=== PATIENT | female | born 1985 | race Caucasian/White ===

== ENCOUNTER 2016-07-30 23:43 | Emergency (ER) | payer BC ==
--- NOTE | 2016-07-31 01:54 | ER Document Report ---
HPI - HPI Patient complains to provider of: skin rash Pain Level: Denies Context: Patient is a 31-year-old female that comes emergency department for chief complaint of a rash, rest started a couple of days ago, patient was evaluated by primary care today and placed on Benadryl, patient states she had a mud run several days ago and rash appeared afterwards. She states she thinks she had a fever, she states she had a headache but this resolved, denies neck stiffness, denies shortness of breath or cough, denies nausea or vomiting. She states the rash is itchy, she denies that the rash is painful. She states she cannot stop scratching. She reports she is up-to-date on her tetanus. Patient states her family members do not have this. She states her friend has this and her friend also went on the mud run. - CARDIOVASCULAR Cardiovascular: DENIES: Chest pain - REPRODUCTIVE Reproductive: DENIES: : - DERM Skin Color: Normal Past Medical History - General Information source: Patient - Social History Smoking Status: Unknown if Ever Smoked Frequency of alcohol use: None Family History: Reviewed & Not Pertinent Patient has suicidal ideation: No Patient has homicidal ideation: No - Past Medical History Cardiac Medical History: Denies: Hx Coronary Artery Disease, Hx Heart Attack, Hx Hypertension Pulmonary Medical History: Denies: Hx Asthma, Hx Bronchitis, Hx COPD, Hx Pneumonia Neurological Medical History: Denies: Hx Cerebrovascular Accident, Hx Seizures Renal/ Medical History: Denies: Hx Peritoneal Dialysis Musculoskeltal Medical History: Denies Hx Arthritis Psychiatric Medical History: Reports: Hx Anxiety, Hx Depression - and anxiety Past Surgical History: Reports: Hx Orthopedic Surgery - R elbow - Immunizations Hx Diphtheria, Pertussis, Tetanus Vaccination: Yes Vertical Provider Document - CONSTITUTIONAL General Appearance: WD/WN, No Apparent Distress - INFECTION CONTROL TRAVEL OUTSIDE OF THE [place] IN LAST 30 DAYS: No - HEENT HEENT: Atraumatic, Normal ENT Exam, Normocephalic - RESPIRATORY Respiratory: Breath Sounds Normal, No Respiratory Distress O2 Sat by Pulse Oximetry: 100 - CARDIOVASCULAR Cardiovascular: Regular Rate, Regular Rhythm - GI/ABDOMEN Gastrointestinal: Abdomen Soft, Abdomen Non-Tender - MUSCULOSKELETAL/EXTREMETIES Musculoskeletal/Extremeties: MAEW, FROM, Non-Tender - DERM Integumentary: Rash - scattered papular rash, some of them are raised and possibly umbilicated, no induration or fluctuance, no significant erythema, no other abnormalities noted Course - Vital Signs Vital signs: Temp Pulse Resp BP Pulse Ox 97.9 F 76 18 118/68 100 07/30/16 23:48 07/30/16 23:48 07/30/16 23:48 07/30/16 23:48 07/30/16 23:48 Discharge - Discharge Clinical Impression: Skin rash Condition: Stable Disposition: HOME, SELF-CARE Additional Instructions: The itchy rash is suspicious of molluscum contagiosum. Over the itchy sites apply the prescribed cream, take zyrtec during the day, take the benadryl at night. Clean areas scratched open with soap and water, apply topical antibiotic , try not to scratch skin open to avoid secondary bacterial infection. Follow up with Primary Care. Return to the ED for any concerning symptoms - redness and spreading redness, hardening or swelling of the skin, or any other concerning symptoms. Prescriptions: Betamethasone Dipropionate 1 applic TP DAILY #1 tube Cetirizine HCl [Zyrtec 10 mg Tablet] 1 tab PO DAILY #30 tablet Forms: Return to School Referrals: ERIC RODRIGUEZ MD [Primary Care Provider] - Follow up as needed
[2016-07-31 02:14] VITALS: BP 124/55
== END 2016-07-31 02:19 | disposition home or self-care (01) ==
LOC: ER 23:43
DX: R21 Rash and other nonspecific skin eruption (principal); L29.9 Pruritus, unspecified
CPT/HCPCS: 99282

== ENCOUNTER 2017-06-26 21:46 | Emergency (ER) | payer BC ==
--- NOTE | 2017-06-26 23:15 | ER Document Report ---
HPI - HPI Pain Level: 4 Notes: Patient is a 32-year-old female with no significant past medical history who presents to the ED complaining of left knee pain status post injury 4 days ago. Patient was evaluated by her primary care provider the next day and was told that it may be an ACL issue and they were going to order an MRI for her. Patient states that she has continued pain and intermittent swelling so she presented to the emergency department. Patient has been using a knee sleeve that they provided to her that does not seem to help her at all. The pain does not radiate. Patient states that she has difficulty weightbearing and ambulating because of the pain. She has not had any other recent illness. Denies any drug allergies. Denies any IV drug use. Denies any headache, fever , neck pain, URI, sore throat, chest pain, palpitations, syncope, cough, shortness of breath, wheeze, dyspnea, abdominal pain, nausea/vomiting/diarrhea, urinary retention, dysuria, hematuria, loss of control of bowel or bladder, numbness/tingling, saddle anesthesia, muscle paralysis/weakness, or rash. XR unremarkable per patient from her [facility]. - ROS Systems Reviewed and Negative: Yes All other systems reviewed and negative - REPRODUCTIVE LMP: 3-17-18 Reproductive: DENIES: : Past Medical History - Social History Smoking Status: Never Smoker Family History: Reviewed & Not Pertinent - Past Medical History Cardiac Medical History: Denies: Hx Coronary Artery Disease, Hx Heart Attack, Hx Hypertension Pulmonary Medical History: Denies: Hx Asthma, Hx Bronchitis, Hx COPD, Hx Pneumonia Neurological Medical History: Denies: Hx Cerebrovascular Accident, Hx Seizures Renal/ Medical History: Denies: Hx Peritoneal Dialysis Musculoskeltal Medical History: Denies Hx Arthritis Psychiatric Medical History: Reports: Hx Anxiety, Hx Depression - and anxiety Past Surgical History: Reports: Hx Orthopedic Surgery - R elbow - Immunizations Hx Diphtheria, Pertussis, Tetanus Vaccination: Yes Vertical Provider Document - CONSTITUTIONAL Agree With Documented VS: Yes Notes: PHYSICAL EXAMINATION: GENERAL: Well-appearing, well-nourished and in no acute distress. LUNGS: Breath sounds clear to auscultation bilaterally and equal. No wheezes rales or rhonchi. HEART: Regular rate and rhythm without murmurs, rubs, gallops. Musculoskeletal: Left knee: No obvious ecchymosis, deformity, swelling, or warmth. Pt would not allow for adequate assessment of knee. LROM to passive/ active. Strength 5+/5. + tenderness to the joint line b/l. Could not adequately assess ligaments and cartilage otherwise. Extremities: No cyanosis, clubbing, or edema b/l. Peripheral pulses 2+. Capillary refill less than 3 seconds. NEUROLOGICAL: Normal speech, limping gait. Normal sensory, motor exams PSYCH: Normal mood, normal affect. SKIN: Warm, Dry, normal turgor, no rashes or lesions noted. - INFECTION CONTROL TRAVEL OUTSIDE OF THE [place] IN LAST 30 DAYS: No Course - Re-evaluation Re-evalutation: 06/26/17 23:14 Patient is an afebrile, well-hydrated, 32-year-old female who presents to the ED with left knee pain, suspect possible internal involvement. Vitals are acceptable. PE is otherwise unremarkable for any neurovascular compromise, obvious tendon/ligament rupture, obvious fracture/dislocation, septic joint. Patient artery had an x-ray which was unremarkable. Knee immobilizer was placed , crutches were declined as she has them at home. Recommend conservative measures for symptoms. Recheck with your PCM in 3-5 days. Schedule an appoint with orthopedics for further evaluation and management. Return to the ED with any worsening/concerning symptoms otherwise as reviewed discharge. Patient is in agreement. - Vital Signs Vital signs: Temp Pulse Resp BP Pulse Ox 98.3 F 99 18 126/62 H 97 06/26/17 22:03 06/26/17 22:03 06/26/17 22:03 06/26/17 22:03 06/26/17 22:03 Discharge - Discharge Clinical Impression: Left knee pain Qualifiers: Chronicity: acute Qualified Code(s): M25.562 - Pain in left knee Condition: Stable Disposition: HOME, SELF-CARE Instructions: Suspected Internal Knee Injury ([facility]), Knee Immobilizing Splint ( [facility]), Use of Crutches ([facility]) Additional Instructions: Rest, Ice, Compression, Elevation Use crutches/splint as directed Tylenol/ibuprofen as needed Light stretches daily Strength exercises as able Moist heat and massage may help F/u with your PCP in 3-5 days for a recheck Schedule an appointment with orthopedics for further evaluation and management Return to the ED with any worsening symptoms and/or development of fever, headache, chest pain, palpitations, syncope, shortness of breath, trouble breathing, abdominal pain, n/v/d, muscle weakness/paralysis, numbness/tingling, swelling, redness, or other worsening symptoms that are concerning to you. Forms: Elevated Blood Pressure, Return to Work Referrals: [facility] [Provider Group] - Follow up in 3-5 days
[2017-06-27] MEDS ORDERED: ACETAMINOPHEN WITH CODEINE #3 TABLET PO ONE (00:05)
[2017-06-27 02:39] VITALS: BP 124/64
== END 2017-06-27 02:35 | disposition home or self-care (01) ==
LOC: ER 21:46
DX: M25.562 Pain in left knee (principal); M79.89 Other specified soft tissue disorders; X58.XXXA Exposure to other specified factors, initial encounter
CPT/HCPCS: 99283; L1830